=== PATIENT | male | born 1985 | race Caucasian/White ===

== ENCOUNTER 2017-04-16 06:42 | Emergency (ER) | payer OTHER ==
[~2017-04-16] VITALS: Ht 165.1 cm; Wt 79.5 kg
[2017-04-16 08:22] LABS: INFLUENZA TYPE B NEGATIVE FOR TYPE B (NEGATIVE)
[2017-04-16 09:00] VITALS: BP 130/77
== END 2017-04-16 09:42 | disposition home or self-care (01) ==
LOC: EMS 06:45
DX: J40 Bronchitis, not specified as acute or chronic (principal)
CPT/HCPCS: 71020; 87804; 99285

== ENCOUNTER 2017-08-27 09:34 | Emergency (ER) | payer OTHER ==
[~2017-08-27] VITALS: Ht 182.9 cm; Wt 80.9 kg
[2017-08-27 11:51] VITALS: BP 120/66
== END 2017-08-27 11:59 | disposition home or self-care (01) ==
LOC: EMS 09:38
DX: J40 Bronchitis, not specified as acute or chronic (principal); R03.0 Elevated blood-pressure reading, without diagnosis of hypertension; J45.909 Unspecified asthma, uncomplicated
CPT/HCPCS: 71046; 99284

== ENCOUNTER 2018-01-19 14:44 | Emergency (ER) | payer OTHER ==
[~2018-01-19] VITALS: Ht 172.7 cm; Wt 81.8 kg
[2018-01-19 17:29] LABS: APPEARANCE,URINE CLEAR (CLEAR); BILIRUBIN,URINE NEGATIVE (NEGATIVE); GLUCOSE, URINE (UA) NEGATIVE (NEGATIVE); KETONES,URINE NEGATIVE (NEGATIVE); LEUKOCYTE ESTERASE ,URINE NEGATIVE (NEGATIVE); NITRATE,URINE NEGATIVE (NEGATIVE); OCCULT BLOOD,URINE NEGATIVE (NEGATIVE); PH,URINE 7.5 (5.0-8.0); PROTEIN,URINE NEGATIVE (NEGATIVE); UROBILINOGEN,URINE 0.2 mg/dL (<=1.0)
[2018-01-19] MEDS ORDERED: DOXYCYCLINE HYCLATE 100 MG CAPSULE PO ONE (21:15)
[2018-01-19] MEDS ORDERED: CefTRIAXone SODIUM 1 GM/VIAL IM ONE (21:15)
[2018-01-19] MEDS ORDERED: LIDOCAINE HCL/PF 1% 2 ML VIAL IM ONE (21:15)
[2018-01-19 21:45] VITALS: BP 126/58
== END 2018-01-19 21:49 | disposition home or self-care (01) ==
LOC: EMS 14:44
DX: N45.2 Orchitis (principal); N45.1 Epididymitis
CPT/HCPCS: 76870; 81003; 96372; 99285; J0696; J3490